=== PATIENT | female | born 1995 | race Caucasian/White ===

== ENCOUNTER 2019-01-20 13:23 | Emergency (ER) | payer OTHER ==
[2019-01-20] MEDS ORDERED: Sodium Chloride 0.9% 1,000 ML IV ONE (13:41)
[2019-01-20] MEDS ORDERED: Sodium Chloride 0.9% 10 ML Syringe FLUSH PRN (13:54)
[2019-01-20] MEDS ORDERED: Metoprolol Tartrate 5 MG/5 ML SDV IVPUSH ONE (14:19)
--- NOTE | 2019-01-20 14:27 | EDM.PDOC ---
ED HPI GENERAL MEDICAL PROBLEM - General Chief Complaint: Cardiovascular Problem Stated Complaint: HEARTBEAT fast Time Seen by Provider: 01/20/19 13:23 Source of Information: Reports: Patient, Family History Limitations: Reports: No Limitations - History of Present Illness INITIAL COMMENTS - FREE TEXT/NARRATIVE: 24 y.o.w f came to the ed with her SO due to palpitations. Her HR was 175 regular, no CP, no Dizziness on arrival, was dizzy at home. No SOB, does not use drugs or ETOH weight loosing meds. She take Vitamins and anxiety meds only. No FH of CAD. No other acute med issues. BP 119/81 RR 16 Pulse 163 Pulse ox 100% on RA Temp 36.8. Pt denies . 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 (See Below) Other CLINICAL MENTAL HEALTH COUNSELOR History: 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 Psychiatric History: Reports: Anxiety, Depression - Past Surgical History HEENT Surgical History: Reports: Oral Surgery GI Surgical History: Reports: Colonoscopy Social & Family History - Family History Family Medical History: Noncontributory - Tobacco Use Smoking Status *Q: Never Smoker - Caffeine Use Caffeine Use: Reports: Coffee - Recreational Drug Use Recreational Drug Use: No ED ROS GENERAL - Review of Systems Review Of Systems: See Below Constitutional: Reports: No Symptoms HEENT: Reports: No Symptoms Respiratory: Reports: No Symptoms Cardiovascular: Reports: Palpitations Endocrine: Reports: No Symptoms GI/Abdominal: Reports: No Symptoms : Reports: No Symptoms Musculoskeletal: Reports: No Symptoms Skin: Reports: No Symptoms Neurological: Reports: No Symptoms Psychiatric: Reports: No Symptoms Hematologic/Lymphatic: Reports: No Symptoms Immunologic: Reports: No Symptoms ED EXAM, GENERAL - Physical Exam Exam: See Below Exam Limited By: No Limitations General Appearance: Alert, WD/WN, Mild Distress Eye Exam: Bilateral Eye: Normal Inspection Ears: Normal External Exam Ear Exam: Bilateral Ear: Auricle Normal Nose: Normal Inspection, Normal Mucosa, No Blood Throat/Mouth: Normal Inspection, Normal Lips, Normal Voice, No Airway Compromise Head: Atraumatic, Normocephalic Neck: Normal Inspection, Supple, Non-Tender Respiratory/Chest: No Respiratory Distress, Lungs Clear, Normal Breath Sounds, Chest Non-Tender Cardiovascular: Tachycardia Peripheral Pulses: 1+: Brachial (L) GI/Abdominal: Normal Bowel Sounds, Soft, Non-Tender, No Organomegaly, Pelvis Stable (Female) Exam: Deferred Rectal (Female) Exam: Deferred Back Exam: Normal Inspection, Full Range of Motion Extremities: Normal Inspection, Normal Range of Motion, Non-Tender Neurological: Alert, Oriented, CN II-XII Intact, Normal Cognition, Normal Gait Psychiatric: Normal Affect, Normal Mood Skin Exam: Warm, Dry, Intact, Normal Color, No Rash Lymphatic: No Adenopathy EKG INTERPRETATION EKG Date: 01/20/19 Time: 13:35 Rhythm: Other (SVT) Rate (Beats/Min): 163 [place]: Normal P-Wave: Absent QRS: Normal ST-T: Normal QT: Normal Comparison: NA - No Prior EKG (Second EKG after NS and Adenosin: NSR with a rate of 86 [place] 213 QTc 405, No Acute ST/T wave changes) Course - Vital Signs Text/Narrative:: 24 y.o.w f came to the ed with her SO due to palpitations. Her HR was 175 regular, no CP, no Dizziness on arrival, was dizzy at home. No SOB, does not use drugs or ETOH weight loosing meds. She take Vitamins and anxiety meds only. No FH of CAD. No other acute med issues. BP 119/81 RR 16 Pulse 163 Pulse ox 100% on RA Temp 36.8. Pt denies . PE: WNWD W F with heart palpitations Imaging: Not indicated Labs: CBC nl BMP nl TSH nl Troponin 0.559 Impression: Dehydration, SVT, elevated Troponin (DDx endocarditis) Tx: NS, Metoprolol, Adenosine 6 mg then 12 mg i v push. Reexm: Pt converted to NSR with a rate of 86 BPM 2.38 pm: Consultation: Dr. Boone, [employer] Executive Director. [facility] Hospitalist: Accepted the Pt for transfer. No echocardiogram is available at [facility]. Plan: Transfer to [place] by EMS Last Recorded V/S: Last Vital Signs Temp 36.8 C 01/20/19 13:23 Pulse 151 H 01/20/19 14:27 Resp 16 01/20/19 13:23 BP 110/65 01/20/19 14:27 Pulse Ox 99 01/20/19 13:23 - Orders/Labs/Meds Orders: Active Orders 24 hr Category Date Time Status EKG Documentation Completion [RC] ASDIRECTED Care 01/20/19 15:31 Active Sodium Chloride 0.9% [Saline Flush] Med 01/20/19 13:54 Active 10 ml FLUSH ASDIRECTED PRN EKG 12 Lead [EK] Routine Ther 01/20/19 13:42 Ordered EKG 12 Lead [EK] Routine Ther 01/20/19 15:31 Ordered Medication Orders Sodium Chloride (Saline Flush) 10 ml FLUSH ASDIRECTED PRN PRN Reason: IV Use Last Admin: 01/20/19 13:50 Dose: 10 ml Labs: Laboratory Tests 01/20/19 01/20/19 01/20/19 Range/Units 13:55 13:55 13:55 WBC 10.7 (4.5-12.0) X10-3/uL RBC 4.90 (3.23-5.20) x10(6)uL Hgb 14.1 (11.5-15.5) g/dL Hct 41.4 (30.0-51.3) % MCV 84.6 (80-96) fL MCH 28.8 (27.7-33.6) pg MCHC 34.1 (32.2-35.4) g/dL RDW 11.2 L (11.5-15.5) % Plt Count 402 H (125-369) X10(3)uL MPV 8.8 (7.4-10.4) fL Neut % (Auto) 70.2 (46-82) % Lymph % (Auto) 21.7 (13-37) % [place] % (Auto) 6.0 (4-12) % Eos % (Auto) 2 (1.0-5.0) % Baso % (Auto) 0 (0-2) % Neut # (Auto) 7.6 (1.6-8.3) # Lymph # (Auto) 2.3 (0.6-5.0) # [place] # (Auto) 0.6 (0.0-1.3) # Eos # (Auto) 0.2 (0.0-0.8) # Baso # (Auto) 0.0 (0.0-0.2) # Sodium 140 (135-145) mmol/L Potassium 4.6 (3.5-5.3) mmol/L Chloride 103 (100-110) mmol/L Carbon Dioxide 30 (21-32) mmol/L BUN 7 (7-18) mg/dL Creatinine 0.7 (0.55-1.02) mg/dL Est Cr Clr Drug Dosing TNP Estimated GFR (MDRD) > 60 (>60) BUN/Creatinine Ratio 10.0 (9-20) Glucose 123 H (80-116) mg/dL Calcium 9.1 (8.6-10.2) mg/dL Magnesium 1.8 (1.8-2.5) mg/dL Troponin I (<0.017-0.056) ng/mL TSH, Ultra Sensitive 1.49 (0.36-3.74) IU/mL 01/20/19 Range/Units 13:55 WBC (4.5-12.0) X10-3/uL RBC (3.23-5.20) x10(6)uL Hgb (11.5-15.5) g/dL Hct (30.0-51.3) % MCV (80-96) fL MCH (27.7-33.6) pg MCHC (32.2-35.4) g/dL RDW (11.5-15.5) % Plt Count (125-369) X10(3)uL MPV (7.4-10.4) fL Neut % (Auto) (46-82) % Lymph % (Auto) (13-37) % [place] % (Auto) (4-12) % Eos % (Auto) (1.0-5.0) % Baso % (Auto) (0-2) % Neut # (Auto) (1.6-8.3) # Lymph # (Auto) (0.6-5.0) # [place] # (Auto) (0.0-1.3) # Eos # (Auto) (0.0-0.8) # Baso # (Auto) (0.0-0.2) # Sodium (135-145) mmol/L Potassium (3.5-5.3) mmol/L Chloride (100-110) mmol/L Carbon Dioxide (21-32) mmol/L BUN (7-18) mg/dL Creatinine (0.55-1.02) mg/dL Est Cr Clr Drug Dosing Estimated GFR (MDRD) (>60) BUN/Creatinine Ratio (9-20) Glucose (80-116) mg/dL Calcium (8.6-10.2) mg/dL Magnesium (1.8-2.5) mg/dL Troponin I 0.556 H* (<0.017-0.056) ng/mL TSH, Ultra Sensitive (0.36-3.74) IU/mL Meds: Medications Generic Name Dose Route Start Last Admin Trade Name Freq PRN Reason Stop Dose Admin Sodium Chloride 10 ml 01/20/19 13:54 01/20/19 13:50 Saline Flush FLUSH 10 ml ASDIRECTED PRN Administration IV Use Discontinued Medications Generic Name Dose Route Start Last Admin Trade Name Freq PRN Reason Stop Dose Admin Adenosine 6 mg 01/20/19 14:56 01/20/19 15:04 Adenocard IVPUSH 01/20/19 14:57 6 mg NOW STA Administration Adenosine 12 mg 01/20/19 15:11 01/20/19 15:12 Adenocard IVPUSH 01/20/19 15:12 12 mg NOW ONE Administration Aspirin 324 mg 01/20/19 15:15 01/20/19 15:16 Aspirin PO 01/20/19 15:16 324 mg ONETIME STA Administration Sodium Chloride 1,000 mls @ 999 mls/hr 01/20/19 13:41 01/20/19 13:52 Normal Saline IV 01/20/19 14:41 999 mls/hr .BOLUS ONE Administration Metoprolol Tartrate 5 mg 01/20/19 14:19 01/20/19 14:27 Lopressor IVPUSH 01/20/19 14:20 5 mg ONETIME ONE Administration Departure - Departure Time of Disposition: 15:33 Disposition: DC/Tfer to Acute Hospital 02 Reason for Transfer *Q: Primary PCI Indicated (no bioinformatics support specialist) Condition: Good, Fair Clinical Impression: H/O paroxysmal supraventricular tachycardia, Elevated troponin Referrals: Clotilde Conway PA-C [Primary Care Provider] - Forms: ED Department Discharge - My Orders Last 24 Hours: My Active Orders 01/20/19 13:42 EKG 12 Lead [EK] Routine 01/20/19 13:54 Sodium Chloride 0.9% [Saline Flush] 10 ml FLUSH ASDIRECTED PRN 01/20/19 15:31 EKG Documentation Completion [RC] ASDIRECTED EKG 12 Lead [EK] Routine - Assessment/Plan Last 24 Hours: My Active Orders 01/20/19 13:42 EKG 12 Lead [EK] Routine 01/20/19 13:54 Sodium Chloride 0.9% [Saline Flush] 10 ml FLUSH ASDIRECTED PRN 01/20/19 15:31 EKG Documentation Completion [RC] ASDIRECTED EKG 12 Lead [EK] Routine
[2019-01-20] MEDS ORDERED: Adenosine 6 MG/2 ML SDV IVPUSH STA (14:56)
[2019-01-20] MEDS ORDERED: Adenosine 6 MG/2 ML SDV IVPUSH ONE (15:11)
[2019-01-20] MEDS ORDERED: Aspirin 81 MG Tab.Chew PO STA (15:15)
[2019-01-20] MEDS ORDERED: Sodium Chloride 0.9% 1,000 ML IV SCH (19:15)
== END 2019-01-20 16:15 ==
LOC: FB.ED 13:23
DX: I47.1 Supraventricular tachycardia (principal)
CPT/HCPCS: 36415; 80048; 83735; 84443; 84484; 85025; 93005; 96361; 96374; 96375; 99285-25; A9270-GY; J0153; J3490; J7030

== ENCOUNTER 2019-04-07 16:35 | Emergency (ER) | payer OTHER ==
[2019-04-07] MEDS ORDERED: Ondansetron 4 MG/2 ML SDV IVPUSH ONE (16:57)
[2019-04-07] MEDS ORDERED: Morphine 2 MG/ML Syringe IVPUSH ONE (16:57)
[2019-04-07] MEDS ORDERED: Sodium Chloride 0.9% 1,000 ML IV SCH (17:00)
[2019-04-07] MEDS ORDERED: Iopamidol 755 Mg/ML 100 ML Bottle IV ONE (17:17)
[2019-04-07] MEDS: Sodium Chloride 0.9% 10 ML Syringe FLUSH PRN ×2 (17:40→17:54)
--- NOTE | 2019-04-07 18:16 | EDM.PDOC ---
ED HPI GENERAL MEDICAL PROBLEM - General Chief Complaint: Abdominal Pain Time Seen by Provider: 04/07/19 16:55 Source of Information: Reports: Patient History Limitations: Reports: No Limitations - History of Present Illness INITIAL COMMENTS - FREE TEXT/NARRATIVE: Patient presented to the ED because of abdominal pain over the LLQ,suprapubic area,RLQ. The pain is sharp and cramping,8/10, with associated nausea but no vomiting. There is no bloody stools,diarrhea or constipation. Abdominal Pain Score (Numeric/FACES): 8 - Related Data Allergies Allergy/AdvReac Type Severity Reaction Status Date / Time No Known Allergies Allergy Verified 04/07/19 17:02 Home Meds: Home Meds Escitalopram [Lexapro] 20 mg PO DAILY 04/07/19 [History] Naproxen 500 mg PO BID #10 tablet 04/07/19 [Rx] Sulfamethoxazole/Trimethoprim [Bactrim Ds Tablet] 1 each PO BID #6 tablet [Rx] Tamsulosin [Tamsulosin 24 Hr] 0.4 mg PO DAILY #5 cap.er 04/07/19 [Rx] Past Medical History Cardiovascular History: Reports: Heart Murmur Gastrointestinal History: Reports: Other (See Below) Other Gastrointestinal History: Crohn's Disease 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) 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 CONSTRUCTION PROFESSOR 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: 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 Psychiatric History: Reports: Anxiety, Depression Endocrine/Metabolic History: Reports: Obesity/BMI 30+ - Past Surgical History HEENT Surgical History: Reports: Oral Surgery GI Surgical History: Reports: Colonoscopy Social & Family History - Family History Family Medical History: Noncontributory - Tobacco Use Smoking Status *Q: Never Smoker Second Hand Smoke Exposure: No - Caffeine Use Caffeine Use: Reports: Coffee, Soda - Recreational Drug Use Recreational Drug Use: No ED ROS GENERAL - Review of Systems Review Of Systems: See Below Constitutional: Reports: No Symptoms HEENT: Reports: No Symptoms Respiratory: Reports: No Symptoms Cardiovascular: Reports: No Symptoms, Palpitations GI/Abdominal: Reports: Abdominal Pain, Nausea. Denies: Hematemesis, Hematochezia, Melena, Vomiting : Reports: No Symptoms Musculoskeletal: Reports: No Symptoms Skin: Reports: No Symptoms ED EXAM, GI/ABD - Physical Exam Exam: See Below Exam Limited By: No Limitations General Appearance: Alert, WD/WN, No Apparent Distress Nose: Normal Inspection, Normal Mucosa Throat/Mouth: Normal Inspection, Normal Lips, Normal Teeth Head: Atraumatic, Normocephalic Neck: Normal Inspection, Supple Respiratory/Chest: No Respiratory Distress, Lungs Clear, Normal Breath Sounds Cardiovascular: Normal Peripheral Pulses, Regular Rate, Rhythm, No Edema, No Gallop, No Murmur GI/Abdominal Exam: Normal Bowel Sounds, Soft, Other (tenderness LLQ,RLQ and suprapubic area) Course - Vital Signs Text/Narrative:: labs reviewed with patient and her BF NS ! L bolus zofran 4mg IV x1 morphine [address] ab/pelvis Last Recorded V/S: Last Vital Signs Temp 36.6 C 04/07/19 19:39 Pulse 88 04/07/19 19:39 Resp 18 04/07/19 19:39 BP 134/70 04/07/19 19:39 Pulse Ox 99 04/07/19 19:39 - Orders/Labs/Meds Orders: Active Orders 24 hr Category Date Time Status Saline Lock Insert [OM.PC] Routine Oth 04/07/19 16:56 Ordered Labs: Laboratory Tests 04/07/19 04/07/19 04/07/19 Range/Units 17:20 17:20 17:20 WBC 9.0 (4.5-12.0) X10-3/uL RBC 4.67 (3.23-5.20) x10(6)uL Hgb 13.2 (11.5-15.5) g/dL Hct 39.1 (30.0-51.3) % MCV 83.8 (80-96) fL MCH 28.3 (27.7-33.6) pg MCHC 33.8 (32.2-35.4) g/dL RDW 12.2 (11.5-15.5) % Plt Count 350 (125-369) X10(3)uL MPV 8.6 (7.4-10.4) fL Neut % (Auto) 68.1 (46-82) % Lymph % (Auto) 19.8 (13-37) % [place] % (Auto) 6.2 (4-12) % Eos % (Auto) 6 H (1.0-5.0) % Baso % (Auto) 0 (0-2) % Neut # (Auto) 6.0 (1.6-8.3) # Lymph # (Auto) 1.8 (0.6-5.0) # [place] # (Auto) 0.6 (0.0-1.3) # Eos # (Auto) 0.5 (0.0-0.8) # Baso # (Auto) 0.0 (0.0-0.2) # Sodium 143 (135-145) mmol/L Potassium 3.8 (3.5-5.3) mmol/L Chloride 104 (100-110) mmol/L Carbon Dioxide 26 (21-32) mmol/L BUN 13 (7-18) mg/dL Creatinine 0.8 (0.55-1.02) mg/dL Est Cr Clr Drug Dosing 95.25 mL/min Estimated GFR (MDRD) > 60 (>60) BUN/Creatinine Ratio 16.3 (9-20) Glucose 120 H (80-116) mg/dL Calcium 9.4 (8.6-10.2) mg/dL Total Bilirubin 0.2 (0.1-1.3) mg/dL AST 17 (5-25) IU/L ALT 14 (12-36) U/L Alkaline Phosphatase 76 (56-112) IU/L Total Protein 7.9 (6.0-8.0) g/dL Albumin 3.9 (3.5-5.2) g/dL Globulin 4.0 g/dL Albumin/Globulin Ratio 1.0 Amylase 34 (25-115) U/L Lipase 81 (73-393) U/L Urine Color (YELLOW) Urine Appearance (CLEAR) Urine pH (5.0-6.5) Ur Specific [place] (1.010-1.025) Urine Protein (NEGATIVE) mg/dL Urine Glucose (UA) (NORMAL) mg/dL Urine Ketones (NEGATIVE) mg/dL Urine Occult Blood (NEGATIVE) Urine Nitrite (NEGATIVE) Urine Bilirubin (NEGATIVE) Urine Urobilinogen (NEGATIVE) mg/dL Ur Leukocyte Esterase (NEGATIVE) Urine RBC (0-5) Urine WBC (0-5) Ur Squamous Epith Cells (NS,R,O) Amorphous Sediment Urine Bacteria (NS) Urine HCG, Qual (NEGATIVE) 04/07/19 04/07/19 Range/Units 17:45 17:45 WBC (4.5-12.0) X10-3/uL RBC (3.23-5.20) x10(6)uL Hgb (11.5-15.5) g/dL Hct (30.0-51.3) % MCV (80-96) fL MCH (27.7-33.6) pg MCHC (32.2-35.4) g/dL RDW (11.5-15.5) % Plt Count (125-369) X10(3)uL MPV (7.4-10.4) fL Neut % (Auto) (46-82) % Lymph % (Auto) (13-37) % [place] % (Auto) (4-12) % Eos % (Auto) (1.0-5.0) % Baso % (Auto) (0-2) % Neut # (Auto) (1.6-8.3) # Lymph # (Auto) (0.6-5.0) # [place] # (Auto) (0.0-1.3) # Eos # (Auto) (0.0-0.8) # Baso # (Auto) (0.0-0.2) # Sodium (135-145) mmol/L Potassium (3.5-5.3) mmol/L Chloride (100-110) mmol/L Carbon Dioxide (21-32) mmol/L BUN (7-18) mg/dL Creatinine (0.55-1.02) mg/dL Est Cr Clr Drug Dosing mL/min Estimated GFR (MDRD) (>60) BUN/Creatinine Ratio (9-20) Glucose (80-116) mg/dL Calcium (8.6-10.2) mg/dL Total Bilirubin (0.1-1.3) mg/dL AST (5-25) IU/L ALT (12-36) U/L Alkaline Phosphatase (56-112) IU/L Total Protein (6.0-8.0) g/dL Albumin (3.5-5.2) g/dL Globulin g/dL Albumin/Globulin Ratio Amylase (25-115) U/L Lipase (73-393) U/L Urine Color Yellow (YELLOW) Urine Appearance Slightly cloudy (CLEAR) Urine pH 7.0 H (5.0-6.5) Ur Specific [place] 1.010 (1.010-1.025) Urine Protein Negative (NEGATIVE) mg/dL Urine Glucose (UA) Normal (NORMAL) mg/dL Urine Ketones Negative (NEGATIVE) mg/dL Urine Occult Blood Negative (NEGATIVE) Urine Nitrite Negative (NEGATIVE) Urine Bilirubin Negative (NEGATIVE) Urine Urobilinogen Normal (NEGATIVE) mg/dL Ur Leukocyte Esterase Negative (NEGATIVE) Urine RBC 0-5 (0-5) Urine WBC 0-5 (0-5) Ur Squamous Epith Cells Occasional (NS,R,O) Amorphous Sediment Moderate Urine Bacteria Rare H (NS) Urine HCG, Qual Negative (NEGATIVE) Meds: Medications Discontinued Medications Generic Name Dose Route Start Last Admin Trade Name Freq PRN Reason Stop Dose Admin Sodium Chloride 1,000 mls @ 999 mls/hr 04/07/19 17:00 04/07/19 17:52 Normal Saline IV 999 mls/hr ASDIRECTED DIVYA Administration Iopamidol 100 ml 04/07/19 17:17 04/07/19 18:07 Isovue-370 (76%) IV 04/07/19 17:18 95 ml . DIRECTED ONE Administration Morphine Sulfate 4 mg 04/07/19 16:57 04/07/19 17:57 Morphine IVPUSH 04/07/19 16:58 4 mg ONETIME ONE Administration Naproxen 500 mg 04/07/19 19:19 04/07/19 19:33 Naprosyn PO 04/07/19 19:20 500 mg ONETIME ONE Administration Ondansetron HCl 4 mg 04/07/19 16:57 04/07/19 17:54 Zofran IVPUSH 04/07/19 16:58 4 mg ONETIME ONE Administration Sodium Chloride 10 ml 04/07/19 16:56 04/07/19 17:54 Saline Flush FLUSH 10 ml ASDIRECTED PRN Administration Keep Vein Open Tamsulosin HCl 0.4 mg 04/07/19 19:18 04/07/19 19:28 Flomax PO 04/07/19 19:19 0.4 mg ONETIME ONE Administration Trimethoprim/Sulfamethoxazole 1 tab 04/07/19 19:18 04/07/19 19:28 Septra Ds PO 04/07/19 19:19 1 tab ONETIME ONE Administration Departure - Departure Time of Disposition: 19:20 Disposition: Home, Self-Care 01 Condition: Good Clinical Impression: Cystitis - Discharge Information Prescriptions: Naproxen 500 mg PO BID #10 tablet Sulfamethoxazole/Trimethoprim [Bactrim Ds Tablet] 1 each PO BID #6 tablet Tamsulosin [Tamsulosin 24 Hr] 0.4 mg PO DAILY #5 cap.er Instructions: Urinary Tract Infection, Adult Referrals: Clotilde Conway PA-C [Primary Care Provider] - Forms: ED Department Discharge Additional Instructions: please read discharge instructions on acute cystitis and UTI increase oral fluids flomax 0.4 mg daily fo 5 day naproxen 500 mg twice daily for 5 days Bactrim DS twice daiky for 3 days follow up as needed Sepsis Event Note - Evaluation Sepsis Screening Result: No Definite Risk - Focused Exam Date Exam was Performed: 04/08/19 Time Exam was Performed: 14:28 - My Orders Last 24 Hours: My Active Orders 04/07/19 16:56 Saline Lock Insert [OM.PC] Routine - Assessment/Plan Last 24 Hours: My Active Orders 04/07/19 16:56 Saline Lock Insert [OM.PC] Routine
--- NOTE | 2019-04-07 19:02 | CT ---
INDICATION: Right and left lower quadrant pelvic pain. CT ABDOMEN AND PELVIS WITH CONTRAST: Spiral 3.75 mm axial sections were obtained through the abdomen and pelvis with 95 mL Isovue-370 at 2.5 mL/second with sagittal and coronal reconstructions 04/07/19 - no comparisons. Total exam DLP was 853.23 mGy-cm. Lower lung yuan and pleural spaces as visualized appear normal. The heart is normal in size. No pericardial effusion was seen. No retroperitoneal masses were identified. There are some apparent lymph nodes in the right lower quadrant which are of questionable etiology, possibly related to previous inflammatory disease. A few are moderate in size, the largest measuring approximately 14 x 11.1 mm. Other than benign etiology is difficult to entirely exclude with this appearance ; however, most likely these represent post inflammatory change. Follow up could be obtained as necessary clinically. No evidence of bowel obstruction or free air were seen. The appendix was not visualized. The upper abdominal organs appear normal. This included the kidneys, liver, gallbladder, spleen, adrenal glands and pancreas. The uterus and ovaries appear to be unremarkable. The urinary bladder wall may be slightly thickened, raising question of cystitis. This should be correlated clinically. IMPRESSION: Normal appearance of the CT of the abdomen and pelvis with contrast except for suggestion of slight thickening of the wall of the urinary bladder, which could represent cystitis and should be correlated clinically. Report was called to Dr. Zee at [address] [facility]
[2019-04-07] MEDS ORDERED: Tamsulosin 0.4 MG Cap.ER PO ONE (19:18)
[2019-04-07] MEDS ORDERED: Sulfamethoxazole/Trimethoprim 800-160 MG Tab PO ONE (19:18)
[2019-04-07] MEDS ORDERED: Naproxen 500 MG Tab PO ONE (19:19)
== END 2019-04-07 19:43 | disposition home or self-care (01) ==
LOC: FB.ED 16:35
DX: N30.90 Cystitis, unspecified without hematuria (principal); F41.9 Anxiety disorder, unspecified; F32.9 Major depressive disorder, single episode, unspecified; K50.90 Crohn's disease, unspecified, without complications; E66.9 Obesity, unspecified; Z68.31 Body mass index [BMI] 31.0-31.9, adult; Z79.899 Other long term (current) drug therapy
CPT/HCPCS: 36415; 74177; 80053; 81001; 81025; 82150; 83690; 85025; 96361; 96374; 96375; 99284; A9270; J2270; J2405; J7030; Q9967